=== PATIENT | female | born 1960 | race Caucasian/White ===

== ENCOUNTER 2024-07-26 09:37 | Emergency (ER) | payer BC ==
[2024-07-26] MEDS ORDERED: Ketorolac Tromethamine 30 MG (1 mL) VIAL ONE (10:24)
[2024-07-26] MEDS ORDERED: Morphine 4 MG/ML VIAL ONE ×2 (10:24→12:00)
== END 2024-07-26 13:11 | disposition home or self-care (01) ==
LOC: CSHERS 09:37
DX: M54.31 Sciatica, right side (principal)
CPT/HCPCS: 96372; J1885; J2272